=== PATIENT | female | born 1985 ===

== ENCOUNTER 2016-12-14 18:02 | Emergency (ER) | payer MEDICAID ==
[2016-12-14 18:09] VITALS: TEMP 97.8
[2016-12-14] MEDS ORDERED: Sodium Chloride 0.9% 1,000 ML IV ONE ×2 (19:41)
--- NOTE | 2016-12-14 19:44 | C.PDOC ---
History Of Present Illness Patient is a 31 year old female who presents to the ER with a complaint of fever and abdominal pain, associated with diarrhea and vomiting since the morning. Patient also reports having diffuse body aches. Denies any chest pain or shortness of breath. Chief Complaint (Nursing): Abdominal Pain History Per: Patient History/Exam Limitations: no limitations Onset/Duration Of Symptoms: Hrs (Since AM) Current Symptoms Are (Timing): Still Present Location Of Pain/Discomfort: Other (Abdominal Pain) Associated Symptoms: Fever, Vomiting, Diarrhea, Other (Diffuse body aches) Past Medical History Reviewed: Historical Data, Nursing Documentation, Vital Signs Vital Signs: Last Vital Signs Temp 97.8 F 12/14/16 18:07 Pulse 96 H 12/14/16 18:07 Resp 18 12/14/16 18:07 BP 94/68 L 12/14/16 18:07 Pulse Ox 96 12/14/16 19:50 - Medical History PMH: No Chronic Diseases Surgical History: (x 2) Family History: States: Unknown Family Hx - Social History Hx Tobacco Use: Yes Hx Alcohol Use: Yes (social) Hx Substance Use: No - Immunization History Hx Tetanus Toxoid Vaccination: Yes Hx Influenza Vaccination: No Hx Pneumococcal Vaccination: No Review Of Systems Constitutional: Positive for: Fever Cardiovascular: Negative for: Chest Pain Respiratory: Negative for: Shortness of Breath Gastrointestinal: Positive for: Vomiting, Abdominal Pain, Diarrhea Musculoskeletal: Positive for: Other (Diffuse body aches) Physical Exam - Physical Exam Appears: Well, Non-toxic Skin: Normal Color, Warm, Dry Head: Atraumatic, Normacephalic Oral Mucosa: Moist Chest: Symmetrical, No Tenderness Cardiovascular: Rhythm Regular, No Murmur Respiratory: Normal Breath Sounds, No Rales, No Rhonchi, No Wheezing Gastrointestinal/Abdominal: Soft, No Tenderness, No Guarding, No Rebound Neurological/Psych: Oriented x3, Normal Speech, Normal Cognition ED Course And Treatment - Laboratory Results Result Diagrams: 12/14/16 19:50 12/14/16 19:50 O2 Sat by Pulse Oximetry: 96 (Room air) Pulse Ox Interpretation: Normal Progress Note: Blood work and urinalysis ordered. Bentyl IM, zofran IVP and IV fluids administered. Disposition Counseled Patient/Family Regarding: Diagnosis - Disposition Referrals: [facility] [Outside] Disposition: HOME/ ROUTINE Disposition Time: 22:52 Condition: STABLE Prescriptions: Atropine/Hyoscyamine [] 1 tab PO Q6 #10 tab Ciprofloxacin [Cipro] 1 tab PO BID #14 tab Instructions: Abdominal Pain (ED), Enteritis (ED), Urinary Tract Infection in Women (DC) Forms: Work Excuse - POA Present On Arrival: None - Clinical Impression Clinical Impression: Abdominal pain, Enteritis, Urinary tract infection - Scribe Statement The provider has reviewed the documentation as recorded by the Scribsol Miles All medical record entries made by the Shalomibsol were at my direction and personally dictated by me. I have reviewed the chart and agree that the record accurately reflects my personal performance of the history, physical exam, medical decision making, and the department course for this patient. I have also personally directed, reviewed, and agree with the discharge instructions and disposition.
[2016-12-14] MEDS ORDERED: Sodium Chloride 0.9% 1,000 ML ONE (19:46)
[2016-12-14 19:56] LABS: BASO % 0.3 % (0.0-2.0); EOS % 0.7 % (0.0-4.0); HEMATOCRIT 34.3 % (34.0-47.0); LYMPH # 1.5 K/uL (1.0-4.3); LYMPH % 20.7 % (20.0-40.0); MEAN CORPUSCULAR HEMOGLOBIN 29.5 pg (27.0-31.0); MEAN CORPUSCULAR HGB CONC 33.1 g/dL (33.0-37.0); MONO # 0.3 K/uL (0.0-0.8); MONO % 4.7 % (0.0-10.0); WHITE BLOOD COUNT 7.1 K/uL (4.8-10.8)
[2016-12-14 20:04] LABS: CHLORIDE 100 mmol/L (98-107); POTASSIUM 3.5 mmol/L (3.6-5.2); SODIUM 138 mmol/L (132-148)
[2016-12-14 20:06] LABS: GFR AFRICAN-AMERICAN > 60
[2016-12-14 20:07] LABS: ALB/GLOB RATIO 1.2 (1.0-2.1); ALKALINE PHOSPHATASE 58 U/L (38-126); ALT/SGPT 34 U/L (9-52); AST/SGOT 24 U/L (14-36); BILIRUBIN,TOTAL 0.7 mg/dL (0.2-1.3); BLOOD UREA NITROGEN 11 mg/dL (7-17); CARBON DIOXIDE 26 mmol/L (22-30); GLUCOSE,RANDOM 88 mg/dL (65-105); TOTAL PROTEIN 6.9 g/dL (6.3-8.3)
[2016-12-14 20:28] LABS: RBC URINE 2 /hpf (0-3); URINE BACTERIA FEW (<OCC); URINE BILIRUBIN NEGATIVE (NEGATIVE); URINE BLOOD NEGATIVE (NEGATIVE); URINE COLOR Yellow (YELLOW); URINE GLUCOSE (UA) NORMAL (Normal); URINE KETONE NEGATIVE (NEGATIVE); URINE LEUKOCYTE ESTERASE 3+ Leu/uL (Negative); URINE PROTEIN NEGATIVE (NEGATIVE); URINE UROBILINOGEN NORMAL mg/dL (0.2-1.0); WBC URINE 16 /hpf (0-5)
[2016-12-14] MEDS ORDERED: Ciprofloxacin 400mg/200ml D5W 400 MG/200 ML BAG IVPB STA (20:42)
[2016-12-14] MEDS ORDERED: Ciprofloxacin 400mg/200ml D5W 400 MG/200 ML BAG IVPB ONE (20:49)
[2016-12-14 23:10] VITALS: BP 100/68; PULSE 77; RESP 20; O2SAT 98
== END 2016-12-14 23:10 | disposition home or self-care (01) ==
LOC: C.ER 18:02
DX: K52.9 Noninfective gastroenteritis and colitis, unspecified (principal); N39.0 Urinary tract infection, site not specified
CPT/HCPCS: 80053; 81001; 83690; 84703; 85025; 87086; 96361; 96365; 96372; 96375; 99285; J0500; J0744; J2405; J7040

== ENCOUNTER 2016-12-30 23:02 | Emergency (ER) | payer MEDICAID ==
[2016-12-30 23:41] VITALS: TEMP 97.7; O2SAT 100
[2016-12-31] MEDS ORDERED: Oxycodone/Acetaminophen 5/325 mg Tab PO STA (00:10)
[2016-12-31] MEDS ORDERED: Oxycodone/Acetaminophen 5/325 mg Tab ONE (00:14)
--- NOTE | 2016-12-31 00:33 | C.PDOC ---
History Of Present Illness A 31 y/o female presents to the ER c/o dental pain for a week. Pt notes she had a dental extraction performed about a week ago and then developed a lot of pain. Pt was seen by her dentist and was diagnosed with dry socket and had packing placed in the area with improvements of pain. Pt is back today noting that packing feel out of her gums and the pain has returned. Pt denies fever, chills, trauma to area, bleeding, swelling, or any other complaints. Time Seen by Provider: 12/30/16 23:47 Chief Complaint (Nursing): Dental Pain History Per: Patient History/Exam Limitations: no limitations Onset/Duration Of Symptoms: Days Current Symptoms Are (Timing): Still Present Severity: Mild Recent travel outside of the [place]: No Additional History Per: Patient Past Medical History Reviewed: Historical Data, Nursing Documentation, Vital Signs Vital Signs: Last Vital Signs Temp 97.7 F 12/31/16 00:35 Pulse 73 12/31/16 00:35 Resp 18 12/31/16 00:35 BP 110/73 12/31/16 00:35 Pulse Ox 100 12/31/16 04:10 Surgical History: (x 2) Family History: States: Unknown Family Hx - Social History Hx Tobacco Use: Yes Hx Alcohol Use: Yes (social) Hx Substance Use: No - Immunization History Hx Tetanus Toxoid Vaccination: Yes Hx Influenza Vaccination: No Hx Pneumococcal Vaccination: No Review Of Systems Except As Marked, All Systems Reviewed And Found Negative. Constitutional: Negative for: Fever, Chills, Other (Trauma to the area) ENT: Positive for: Mouth Pain. Negative for: Mouth Swelling, Other (Mouth bleeding or swelling) Physical Exam - Physical Exam Appears: Non-toxic, No Acute Distress Skin: Warm, Dry Head: Atraumatic, Normacephalic Eye(s): bilateral: Normal Inspection, PERRL, EOMI Oral Mucosa: Moist Teeth: No Caries Gingiva: No Swelling, No Tender, No Bleeding, No Abscess, Other (Upper left second pre-molar tooth extraction and (+) dry socket, no bleeding or drainage) Throat: Normal, No Exudate Neck: Normal ROM Neurological/Psych: Oriented x3, Normal Speech, Normal Cognition ED Course And Treatment O2 Sat by Pulse Oximetry: 100 (RA) Pulse Ox Interpretation: Normal Medical Decision Making Medical Decision Making: Plans: -Lidocaine -Oxycodone -Reassess and disposition Viscous lidocaine placed inside gums and gauze packed in place. There is no evidence of infection of abscess so no need for antibiotics. On reassessment, patient is resting comfortably, and is in no acute distress. Patient was instructed to follow up with physician/clinic in 1-2 days for further evaluation. Disposition - Disposition Referrals: [email or web address] [Outside] [facility] [Outside] Disposition: HOME/ ROUTINE Disposition Time: 00:31 Condition: GOOD Additional Instructions: Follow up with the dentist/clinic within 1-2 days without fail. Return if worsened. Prescriptions: Acetaminophen/Codeine [Tylenol/Codeine 300 MG/30 MG] 1 tab PO Q6 PRN #20 tab PRN Reason: Pain, Moderate (4-7) Instructions: Dry Socket (ED) - Clinical Impression Clinical Impression: Dry socket - Scribe Statement The provider has reviewed the documentation as recorded by the Shalomibsol barahona All medical record entries made by the Shalomibsol were at my direction and personally dictated by me. I have reviewed the chart and agree that the record accurately reflects my personal performance of the history, physical exam, medical decision making, and the department course for this patient. I have also personally directed, reviewed, and agree with the discharge instructions and disposition.
[2016-12-31 00:36] VITALS: BP 110/73; PULSE 73; RESP 18
== END 2016-12-31 00:38 | disposition home or self-care (01) ==
LOC: C.ER 23:02
DX: M27.3 Alveolitis of jaws (principal)

== ENCOUNTER 2017-01-18 18:00 | Emergency (ER) | payer OTHER, MEDICAID ==
[2017-01-18 18:29] VITALS: RESP 18; O2SAT 100
--- NOTE | 2017-01-18 19:26 | C.PDOC ---
History Of Present Illness 31 yo female come in for evaluation of Right knee pain developed since today afternoon after sustained mechanical fall at work. Pt admits, slipped and landed onto Right knee. Pt sts, was able to ambulate after the injury, although noted some swelling. Otherwise, pt denies head injury, LOC, syncope, headache, dizziness, visual changes, focal deficits,m neck apin, CP, abd. pain, N/V, denies deformity/weakness, sensory or vascular deficits to B/L UEs and LEs. Ambulate to ED for evaluation, not in any apparent distress. Time Seen by Provider: 01/18/17 18:10 Chief Complaint (Nursing): Lower Extremity Problem/Injury History Per: Patient Onset/Duration Of Symptoms: Gradual Past Medical History Reviewed: Historical Data, Nursing Documentation, Vital Signs Vital Signs: Last Vital Signs Temp 98 F 01/18/17 19:42 Pulse 69 01/18/17 19:42 Resp 18 01/18/17 19:42 BP 101/60 01/18/17 19:42 Pulse Ox 100 01/18/17 19:42 - Medical History PMH: No Chronic Diseases Surgical History: (x 2) Family History: States: Unknown Family Hx - Social History Hx Tobacco Use: Yes Hx Alcohol Use: Yes (social) Hx Substance Use: No - Immunization History Hx Tetanus Toxoid Vaccination: Yes Hx Influenza Vaccination: No Hx Pneumococcal Vaccination: No Review Of Systems Except As Marked, All Systems Reviewed And Found Negative. Constitutional: Negative for: Fever, Chills Gastrointestinal: Negative for: Nausea, Vomiting Musculoskeletal: Positive for: Other (Right knee pain) Skin: Negative for: Bruising Neurological: Negative for: Weakness, Numbness Physical Exam - Physical Exam Appears: Well, Non-toxic, No Acute Distress Skin: Normal Color, Warm, No Ecchymosis Head: Atraumatic, Normacephalic Eye(s): bilateral: PERRL Nose: No Epistaxis, No Deformity, No Tenderness Oral Mucosa: Moist, No Drooling Neck: No Midline Cervical Tenderness, No Paracervical Tenderness, No Step Off Deformity, Supple Chest: Symmetrical, No Deformity, No Tenderness Back: No CVA Tenderness, No Vertebral Tenderness Extremity: Normal ROM (Right knee), Tenderness (Right knee anterior tenderness over patella. NO palpable deformity, no skin chaghes.), No Deformity, No Swelling Neurological/Psych: Oriented x3, Normal Speech, Normal Motor, Normal Sensation, Normal Reflexes ED Course And Treatment O2 Sat by Pulse Oximetry: 100 Pulse Ox Interpretation: Normal - Other Rad Right knee X-Ray: Interpreted by Me, Viewed By Me Interpretation: no acute fx or dislocation Progress Note: On re-evaluation, pt is afebrile, hemodynamicaly stable. NOn- toxic. Ambulatory in ED with stable gait. neck: (-) midline tenderness. RLE: ( +) exam c/w contusion of knee, FAROM, no neurovascular deficits. Neurologicaly intact. xray review and appears normal. Arnel wrap to Right knee applied. Pt advised on course of ds. ref. to f/u with Ortho in 2-3 days for re-eavl. return to ED if any worsening or new changes. Disposition Counseled Patient/Family Regarding: Studies Performed, Diagnosis, Need For Followup, Rx Given - Disposition Referrals: [facility] [Outside] [facility] [Outside] Blaze King III, MD [Staff Provider] - Disposition: HOME/ ROUTINE Disposition Time: 19:27 Condition: STABLE Additional Instructions: RICE-rest, ice, compression, elevation Take Ibuprofen for swelling and pain Follow up with [facility] in 2-3 days for re-evaluation. Return to Ed if any worsening or new changes. Prescriptions: Ibuprofen [Motrin Tab] 600 mg PO Q6 #14 tab Instructions: Knee Sprain (ED) Forms: Work Excuse - Clinical Impression Clinical Impression: Knee contusion
[2017-01-18 19:43] VITALS: BP 101/60; PULSE 69; TEMP 98
--- NOTE | 2017-01-19 10:43 | RAD ---
PROCEDURE: Right Knee Radiographs. HISTORY: injury COMPARISON: None. FINDINGS: BONES: Normal. No fracture. JOINTS: Normal. No osteoarthritis. JOINT EFFUSION: None. OTHER FINDINGS: None. IMPRESSION: Normal radiographs of the right knee.
== END 2017-01-18 19:42 | disposition home or self-care (01) ==
LOC: C.ER 18:00
DX: S80.01XA Contusion of right knee, initial encounter (principal); W01.0XXA Fall on same level from slipping, tripping and stumbling without subsequent striking against object, initial encounter; Y93.89 Activity, other specified; Y92.89 Other specified places as the place of occurrence of the external cause; Y99.0 Civilian activity done for income or pay

== ENCOUNTER 2017-03-09 17:32 | Emergency (ER) | payer MEDICAID, OTHER ==
[2017-03-09 17:49] VITALS: RESP 20; TEMP 98.2; O2SAT 98
[2017-03-09] MEDS ORDERED: Sodium Chloride 0.9% 1,000 ML IV STA ×2 (18:25→19:21)
[2017-03-09 19:03] LABS: BASO % 0.4 % (0.0-2.0); EOS % 0.4 % (0.0-4.0); LYMPH # 1.6 K/uL (1.0-4.3); LYMPH % 21.4 % (20.0-40.0); MEAN CELL VOLUME 87.2 fL (81.0-99.0); MEAN CORPUSCULAR HGB CONC 33.2 g/dL (33.0-37.0); MEAN PLATELET VOLUME 9.2 fL (7.2-11.7); MONO # 0.4 K/uL (0.0-0.8); MONO % 5.4 % (0.0-10.0); RED CELL DISTRIBUTION WIDTH 15.2 % (11.5-14.5); WHITE BLOOD COUNT 7.5 K/uL (4.8-10.8)
[2017-03-09 19:10] LABS: RBC URINE 1 /hpf (0-3); URINE BACTERIA RARE (<OCC); URINE BILIRUBIN NEGATIVE (NEGATIVE); URINE BLOOD NEGATIVE (NEGATIVE); URINE COLOR Yellow (YELLOW); URINE GLUCOSE (UA) NORMAL (Normal); URINE KETONE NEGATIVE (NEGATIVE); URINE LEUKOCYTE ESTERASE TRACE Leu/uL (Negative); URINE PROTEIN NEGATIVE (NEGATIVE); URINE UROBILINOGEN NORMAL mg/dL (0.2-1.0); WBC URINE 2 /hpf (0-5)
[2017-03-09 19:14] LABS: CHLORIDE 99 mmol/L (98-107); POTASSIUM 3.2 mmol/L (3.6-5.2); SODIUM 133 mmol/L (132-148)
[2017-03-09 19:16] LABS: AST/SGOT 23 U/L (14-36); BILIRUBIN,TOTAL 0.6 mg/dL (0.2-1.3); CARBON DIOXIDE 25 mmol/L (22-30); GFR AFRICAN-AMERICAN > 60
[2017-03-09 19:17] LABS: ALB/GLOB RATIO 1.2 (1.0-2.1); ALKALINE PHOSPHATASE 71 U/L (38-126); ALT/SGPT 39 U/L (9-52); BLOOD UREA NITROGEN 6 mg/dL (7-17); CALCIUM 8.3 mg/dl (8.6-10.4); GLUCOSE,RANDOM 90 mg/dL (65-105); TOTAL PROTEIN 6.9 g/dL (6.3-8.3)
[2017-03-09] MEDS ORDERED: Potassium Chloride 20 mEq ER Tab PO STA (19:21)
[2017-03-09] MEDS ORDERED: Potassium Chloride 20 mEq ER Tab PO ONE (19:44)
--- NOTE | 2017-03-09 20:36 | C.PDOC ---
History Of Present Illness 31 y/o female that presents to the ED for evaluation of abdominal cramping associated with nausea, vomiting for the last 3 days. Pt states she has been feeling weak, and has body aches. Otherwise, denies any vomiting, urinary symptoms, or fever. Time Seen by Provider: 03/09/17 17:58 Chief Complaint (Nursing): GI Problem History Per: Patient History/Exam Limitations: no limitations Onset/Duration Of Symptoms: Days (3) Current Symptoms Are (Timing): Still Present Location Of Pain/Discomfort: Diffuse Quality Of Discomfort: "Pain" Associated Symptoms: Nausea, Diarrhea. denies: Fever, Chills, Vomiting, Loss Of Appetite, Back Pain, Chest Pain, Constipation, Urinary Symptoms Exacerbating Factors: None Alleviating Factors: Rest Recent travel outside of the [place]: No Additional History Per: Patient Abnormal Vaginal Bleeding: No Past Medical History Reviewed: Historical Data, Nursing Documentation, Vital Signs Vital Signs: Last Vital Signs Temp 98.2 F 03/09/17 20:59 Pulse 80 03/09/17 20:59 Resp 20 03/09/17 20:59 BP 128/72 03/09/17 20:59 Pulse Ox 98 03/09/17 20:59 Surgical History: (x 2) Family History: States: Unknown Family Hx - Social History Hx Tobacco Use: Yes Hx Alcohol Use: Yes (social) Hx Substance Use: No - Immunization History Hx Tetanus Toxoid Vaccination: Yes Hx Influenza Vaccination: No Hx Pneumococcal Vaccination: No Review Of Systems Except As Marked, All Systems Reviewed And Found Negative. Constitutional: Positive for: Weakness, Other (body aches). Negative for: Fever , Chills Gastrointestinal: Positive for: Nausea, Abdominal Pain, Diarrhea. Negative for : Vomiting, Constipation Genitourinary: Negative for: Dysuria, Frequency, Hematuria Musculoskeletal: Negative for: Back Pain Physical Exam - Physical Exam Appears: Non-toxic, No Acute Distress Skin: Normal Color, Warm, Dry Head: Atraumatic, Normacephalic Eye(s): bilateral: Normal Inspection Neck: Normal ROM, Supple Cardiovascular: Rhythm Regular, No Murmur Respiratory: Normal Breath Sounds, No Rales, No Rhonchi, No Wheezing Gastrointestinal/Abdominal: Normal Exam, Soft, No Tenderness, No Guarding, No Rebound Extremity: Bilateral: Atraumatic Neurological/Psych: Oriented x3, Normal Speech, Normal Cognition ED Course And Treatment - Laboratory Results Result Diagrams: 03/09/17 18:55 03/09/17 18:55 O2 Sat by Pulse Oximetry: 98 (RA) Pulse Ox Interpretation: Normal Progress Note: Blood work, urinlaysis ordered and reviewed. Patient was given IV fluids, Pepcid, Zofran. Potassium was found to be low. Patient was given Potassium chloride. On re-eval, abdomen remains soft and non-tender. Notes feeling better. Patient is being discharged home, instructed to f/u with PMD. Disposition - Disposition Disposition: HOME/ ROUTINE Disposition Time: 20:34 Condition: STABLE Additional Instructions: Follow up with your PMD within 1-2 days. Return to ED if feel worse. 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 - Scribe Statement The provider has reviewed the documentation as recorded by the Shalomibsol Greer All medical record entries made by the Shalomibsol were at my direction and personally dictated by me. I have reviewed the chart and agree that the record accurately reflects my personal performance of the history, physical exam, medical decision making, and the department course for this patient. I have also personally directed, reviewed, and agree with the discharge instructions and disposition.
[2017-03-09 21:00] VITALS: BP 128/72; PULSE 80
== END 2017-03-09 20:59 | disposition home or self-care (01) ==
LOC: C.ER 17:32
DX: K52.9 Noninfective gastroenteritis and colitis, unspecified (principal)
CPT/HCPCS: 80053; 81001; 83690; 84703; 85025; 96361; 96374; 96375; 99284; J2405; J7040

== ENCOUNTER 2017-05-04 18:28 | Emergency (ER) | payer MEDICAID ==
[2017-05-04 18:50] VITALS: BP 110/69; PULSE 120; RESP 20; TEMP 99; O2SAT 100
[2017-05-04] MEDS ORDERED: Promethazine/Cod 6.25mg-10mg/5ml Syr UD PO STA (19:31)
--- NOTE | 2017-05-04 19:40 | C.PDOC ---
History Of Present Illness 31 yr old female presents to the ER with complaints of cough for the past 4 days. Patient also reports of chest congestion, back pain on coughing and sore throat for the past 2 days. Patient states she took OTC Motrin with minimal relief. Denies fever, chest pain, SOB, nausea, vomiting, abdominal pain, weakness or numbness. Time Seen by Provider: 05/04/17 19:19 Chief Complaint (Nursing): Cough, Cold, Congestion History Per: Patient History/Exam Limitations: no limitations Onset/Duration Of Symptoms: Days Sick Contacts (Context): None Past Medical History Reviewed: Historical Data, Nursing Documentation, Vital Signs Vital Signs: Last Vital Signs Temp 99.0 F 05/04/17 18:47 Pulse 120 H 05/04/17 18:47 Resp 20 05/04/17 18:47 BP 110/69 05/04/17 18:47 Pulse Ox 100 05/04/17 21:46 Surgical History: (x 2) Family History: States: No Known Family Hx - Social History Hx Tobacco Use: Yes Hx Alcohol Use: Yes (social) Hx Substance Use: No - Immunization History Hx Tetanus Toxoid Vaccination: No Hx Influenza Vaccination: No Hx Pneumococcal Vaccination: No Review Of Systems Except As Marked, All Systems Reviewed And Found Negative. Constitutional: Negative for: Fever Cardiovascular: Negative for: Chest Pain Respiratory: Positive for: Cough. Negative for: Shortness of Breath Gastrointestinal: Negative for: Nausea, Vomiting, Abdominal Pain Musculoskeletal: Positive for: Back Pain (Upper back pain with cough) Neurological: Negative for: Weakness, Numbness Physical Exam - Physical Exam Appears: Non-toxic, No Acute Distress Skin: Warm, Dry, No Rash Head: Atraumatic, Normacephalic Oral Mucosa: Moist Chest: Symmetrical, No Tenderness Cardiovascular: Rhythm Regular, No Murmur Respiratory: Normal Breath Sounds, No Rales, No Rhonchi, No Stridor, No Wheezing Gastrointestinal/Abdominal: Normal Exam, Soft, No Tenderness, No Guarding, No Rebound Extremity: Normal ROM, No Swelling Neurological/Psych: Oriented x3, Normal Speech, Normal Motor ED Course And Treatment O2 Sat by Pulse Oximetry: 100 (RA) Pulse Ox Interpretation: Normal Progress Note: Pt is comfortable and in NAD, VSS. Pt advised follow up with PMD. Return precautions given and understood by pt Reevaluation Time: 19:50 Reassessment Condition: Improved Disposition Counseled Patient/Family Regarding: Diagnosis, Need For Followup, Rx Given - Disposition Disposition: HOME/ ROUTINE Disposition Time: 19:36 Condition: STABLE Additional Instructions: Please follow up with PMD Increase PO fluids Take meds as directed Return to ER if worse Prescriptions: Benzonatate [Tessalon Perles] 100 mg PO TID #20 sgl Cetirizine HCl [Zyrtec] 10 mg PO DAILY #20 capsule Ibuprofen [Motrin] 600 mg PO Q6H #30 tab Instructions: Upper Respiratory Infection (ED) Forms: Grandis (Argentine) - Clinical Impression Clinical Impression: Upper respiratory infection - 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 - Scribe Statement The provider has reviewed the documentation as recorded by the Scribe Gin Rogel All medical record entries made by the Scribsol were at my direction and personally dictated by me. I have reviewed the chart and agree that the record accurately reflects my personal performance of the history, physical exam, medical decision making, and the department course for this patient. I have also personally directed, reviewed, and agree with the discharge instructions and disposition.
[2017-05-04] MEDS ORDERED: Promethazine/Cod 6.25mg-10mg/5ml Syr UD ONE ×2 (19:47→19:48)
== END 2017-05-04 20:12 | disposition home or self-care (01) ==
LOC: C.ER 18:28
DX: J06.9 Acute upper respiratory infection, unspecified (principal); F17.210 Nicotine dependence, cigarettes, uncomplicated

== ENCOUNTER 2017-08-13 11:40 | Emergency (ER) | payer MEDICAID ==
[2017-08-13 11:54] VITALS: BP 116/80; PULSE 98; RESP 18; TEMP 98; O2SAT 100
[2017-08-13] MEDS ORDERED: Bacitracin 500 Units/gm Oint Foilpak UD TOP ONE (12:16)
[2017-08-13] MEDS ORDERED: Bacitracin 500 Units/gm Oint Foilpak UD ONE (12:23)
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
[2017-08-13] MEDS ORDERED: Lidocaine 1% Inj (20ml) INFIL ONE (13:01)
[2017-08-13] MEDS ORDERED: Lidocaine 1% Inj (20ml) ONE (13:06)
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
== END 2017-08-13 13:33 | disposition home or self-care (01) ==
LOC: C.ER 11:40
DX: S61.211A Laceration without foreign body of left index finger without damage to nail, initial encounter (principal); W26.0XXA Contact with knife, initial encounter; Y92.89 Other specified places as the place of occurrence of the external cause

== ENCOUNTER 2017-09-12 08:20 | Emergency (ER) | payer MEDICAID ==
[2017-09-12 08:30] VITALS: RESP 18; O2SAT 100
[2017-09-12] MEDS ORDERED: Sodium Chloride 0.9% 1,000 ML IV ONE (08:41)
[2017-09-12] MEDS ORDERED: Sodium Chloride 0.9% 1,000 ML ONE (08:48)
[2017-09-12] MEDS: Albuterol-Ipratrop 3 mg / 0.5 (3 ml) UD IH SCH ×2 (08:50→09:00)
--- NOTE | 2017-09-12 08:55 | C.PDOC ---
History Of Present Illness 31 y/o female presents to ED with complaints of cough, cold, congestion and fever for 2-3 days. 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 Patient denies nausea, vomiting, sob, chest pain or any other complaints at this time. Time Seen by Provider: 09/12/17 08:36 Chief Complaint (Nursing): Cough, Cold, Congestion History Per: Patient History/Exam Limitations: no limitations Onset/Duration Of Symptoms: Days Current Symptoms Are (Timing): Still Present Associated Symptoms: Fever, Cough Past Medical History Reviewed: Historical Data, Nursing Documentation, Vital Signs Vital Signs: Last Vital Signs Temp 103.1 F H 09/12/17 10:29 Pulse 112 H 09/12/17 10:29 Resp 18 09/12/17 10:29 BP 108/72 09/12/17 10:29 Pulse Ox 100 09/12/17 11:30 - Medical History PMH: Bronchitis, Pneumonia Surgical History: (x 2) Family History: States: No Known Family Hx - Social History Hx Tobacco Use: Yes Hx Alcohol Use: Yes (social) Hx Substance Use: No - Immunization History Hx Tetanus Toxoid Vaccination: No Hx Influenza Vaccination: No Hx Pneumococcal Vaccination: No Review Of Systems Constitutional: Positive for: Fever. Negative for: Chills ENT: Positive for: Nose Congestion Cardiovascular: Negative for: Chest Pain Respiratory: Positive for: Cough. Negative for: Shortness of Breath Gastrointestinal: Negative for: Nausea, Abdominal Pain Skin: Negative for: Rash Physical Exam - Physical Exam Appears: Non-toxic, No Acute Distress Skin: Warm, Dry, No Rash Head: Atraumatic, Normacephalic Eye(s): bilateral: Normal Inspection Ear(s): Bilateral: Normal Oral Mucosa: Moist Throat: Normal, No Erythema, No Exudate Neck: Supple Cardiovascular: Rhythm Regular, Other (Tachycardic) Respiratory: Normal Breath Sounds, No Rales, No Rhonchi, No Wheezing Gastrointestinal/Abdominal: Soft, No Tenderness, No Guarding, No Rebound Extremity: Normal ROM, No Pedal Edema Neurological/Psych: Oriented x3 ED Course And Treatment - Laboratory Results Result Diagrams: 09/12/17 09:03 09/12/17 09:03 Lab Interpretation: No Acute Changes Urine POC: Negative ECG: Interpreted By Me ECG Rhythm: Sinus Tachycardia Rate From EC O2 Sat by Pulse Oximetry: 100 (RA) Pulse Ox Interpretation: Normal - Radiology CXR: Interpreted by Me CXR Interpretation: Yes: No Acute Disease Progress Note: Treated with IVF NSS and tylenol 650 mg PO. On re-evaluation lungs clear. Flu A (+). Discharged in stable condition Reassessment Condition: Improved Medical Decision Making Medical Decision Making: Plan: ECG, CXR, Neb treatment, Blood work, POC urine preg ordered Disposition Counseled Patient/Family Regarding: Studies Performed, Diagnosis, Need For Followup, Rx Given - Disposition Referrals: [facility] [Outside] [facility] [Outside] Disposition: HOME/ ROUTINE Disposition Time: 11:30 Condition: STABLE Additional Instructions: Follow up with PMD or clinic for further evaluation Return to ED if any increase symptoms Prescriptions: Oseltamivir [Tamiflu] 75 mg PO BID #10 cap Instructions: Viral Pneumonia (ED), Influenza (ED), Upper Respiratory Infection (ED) Forms: [facility] (Hebrew), Work Excuse - POA Present On Arrival: None - Clinical Impression Clinical Impression: Flu, Fever - 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 - Scribe Statement The provider has reviewed the documentation as recorded by the Bryson Man All medical record entries made by the Bryson were at my direction and personally dictated by me. I have reviewed the chart and agree that the record accurately reflects my personal performance of the history, physical exam, medical decision making, and the department course for this patient. I have also personally directed, reviewed, and agree with the discharge instructions and disposition.
[2017-09-12] MEDS ORDERED: Albuterol-Ipratrop 3 mg / 0.5 (3 ml) UD ONE (08:56)
[2017-09-12 09:13] LABS: BASO % 0.7 % (0.0-2.0); EOS % 0.8 % (0.0-4.0); HEMOGLOBIN 10.7 g/dL (11.0-16.0); LYMPH % 10.1 % (20.0-40.0); MEAN CELL VOLUME 84.5 fL (81.0-99.0); MEAN CORPUSCULAR HEMOGLOBIN 28.2 pg (27.0-31.0); MEAN CORPUSCULAR HGB CONC 33.4 g/dL (33.0-37.0); MEAN PLATELET VOLUME 9.3 fL (7.2-11.7); MONO % 7.6 % (0.0-10.0); NEUT # 4.9 K/uL (1.8-7.0); NEUT % 80.8 % (50.0-75.0); RBC 3.78 Mil/uL (3.80-5.20); RED CELL DISTRIBUTION WIDTH 14.6 % (11.5-14.5); WHITE BLOOD COUNT 6.1 K/uL (4.8-10.8)
[2017-09-12 09:14] LABS: LYMPH # 0.6 K/uL (1.0-4.3); MONO # 0.5 K/uL (0.0-0.8)
[2017-09-12 09:28] LABS: BLOOD UREA NITROGEN 8 mg/dL (7-17); CALCIUM 8.3 mg/dl (8.6-10.4); GFR AFRICAN-AMERICAN > 60; GFR NON-AFRICAN AMERICAN > 60
--- NOTE | 2017-09-12 09:49 | RAD ---
HISTORY: SOB COMPARISON: Chest radiograph dated 09/22/2016 TECHNIQUE: Chest PA and lateral FINDINGS: LUNGS: No active pulmonary disease. PLEURA: No significant pleural effusion identified. No pneumothorax apparent. CARDIOVASCULAR: Normal. OSSEOUS STRUCTURES: No significant abnormalities. VISUALIZED UPPER ABDOMEN: Normal. OTHER FINDINGS: None. IMPRESSION: No active disease.
[2017-09-12 10:30] VITALS: BP 108/72; PULSE 112; TEMP 103.1
--- NOTE | 2017-09-13 12:36 | CARD ---
APPROVED REPORT EKG Measurement Heart [id number] <Conclusion> Sinus tachycardia Otherwise normal ECG
== END 2017-09-12 11:53 | disposition home or self-care (01) ==
LOC: C.ER 08:20
DX: J11.1 Influenza due to unidentified influenza virus with other respiratory manifestations (principal); R50.9 Fever, unspecified
CPT/HCPCS: 71046; 80048; 83605; 85025; 87070; 87430; 87804; 93005; 94640; 96360; 99285; J7040

== ENCOUNTER 2017-09-14 22:07 | Emergency (ER) | payer MEDICAID ==
[2017-09-14 22:37] VITALS: BP 100/68; PULSE 102; RESP 16; TEMP 98.8; O2SAT 99
--- NOTE | 2017-09-14 22:51 | C.PDOC ---
History Of Present Illness Patient is a 31 y/o female who presents to the ED with complains of not feeling well for several days. Patient was seen in ED 2 days ago and diagnosed with flu. Patient states she is taking Tamiflu, Tylenol and Motrin at home without relief. She states she feels the same or even worse, complains of sore throat, cough, headache, malaise and body aches. Fever has resolved. Time Seen by Provider: 09/14/17 22:39 Chief Complaint (Nursing): Cough, Cold, Congestion History Per: Patient History/Exam Limitations: no limitations Onset/Duration Of Symptoms: Days (2) Current Symptoms Are (Timing): Still Present Location Of Pain: Throat Associated Symptoms: Fever, Cough Recent travel outside of the [place]: No Past Medical History Reviewed: Historical Data, Nursing Documentation, Vital Signs Vital Signs: Last Vital Signs Temp 98.8 F 09/14/17 22:27 Pulse 102 H 09/14/17 22:27 Resp 16 09/14/17 22:27 BP 100/68 09/14/17 22:27 Pulse Ox 99 09/14/17 23:35 - Medical History PMH: Bronchitis, Pneumonia Surgical History: No Surg Hx, (x 2) Family History: States: No Known Family Hx - Social History Hx Tobacco Use: Yes Hx Alcohol Use: Yes (social) Hx Substance Use: No - Immunization History Hx Tetanus Toxoid Vaccination: No Hx Influenza Vaccination: Yes Hx Pneumococcal Vaccination: No Review Of Systems Constitutional: Positive for: Fever, Malaise ENT: Positive for: Throat Pain Respiratory: Positive for: Cough. Negative for: Shortness of Breath Gastrointestinal: Negative for: Abdominal Pain Musculoskeletal: Positive for: Other (diffuse myalgias) Skin: Negative for: Rash Neurological: Positive for: Headache Physical Exam - Physical Exam Appears: Well, Non-toxic Skin: Normal Color, Warm, Dry Head: Atraumatic, Normacephalic Eye(s): bilateral: Normal Inspection, EOMI Ear(s): Bilateral: Normal (no erythema) Nose: Normal Oral Mucosa: Moist Throat: Erythema (mild), No Exudate, No Drooling, No Mass Neck: Normal ROM, Supple Lymphatic: Normal Exam, No Adenopathy Chest: Symmetrical Cardiovascular: Rhythm Regular, No Murmur Respiratory: Normal Breath Sounds, No Rales, No Rhonchi, No Wheezing Extremity: Bilateral: Atraumatic, Normal Color And Temperature, Normal ROM Neurological/Psych: Oriented x3, Normal Speech, Other (no focal deficits) Gait: Steady ED Course And Treatment O2 Sat by Pulse Oximetry: 99 Medical Decision Making Medical Decision Making: Prior record reviewed from 2 days ago 09/12/17, patient had complete workup, labs CXR, EKG with no abnormalities and +Flu A. Patient complains she still feels the same and wants antibiotics for her throat. Throat exam shows mild erythema, no exudates or signs of strep pharyngitis. I explained and educated patient on Influenza and the course of illness. Explain the symptoms of flu can last a week and until fever free for 24 hours she is no longer contagious and severity of symptoms improves after the first few days. Prednisone given for throat pain and cough/chest congestion. Advise to finish Tamiflu and try cepacol, lozenges or gargles for throat pain. Antibiotics are not necessary for treatment and current treatment plan is appropriate. Rx given. Patient stable for discharge Disposition Counseled Patient/Family Regarding: Diagnosis, Need For Followup, Rx Given - Disposition Referrals: [facility] [Outside] [facility] [Outside] Disposition: HOME/ ROUTINE Disposition Time: 23:00 Condition: GOOD Additional Instructions: You have influenza which can last up to 2 weeks, but taking Tamiflu can make symptoms last about one week Continue to rest and drink fluids to stay hydrated Take Tylenol or Motrin alternating every 4-6 hours for Fever 100.4F or higher. Take Prednisone daily to help with any inflammation of throat and chest Take cough medicine as needed Please follow up with your primary doctor for further evaluation. Prescriptions: Prednisone 50 mg PO DAILY #5 tablet Promethazine/Codeine [Phenergan/Codeine Oral Syrup] 5 ml PO Q8 PRN #150 ml PRN Reason: Cough Instructions: Influenza (ED) Forms: [facility] (Tamazight) - POA Present On Arrival: None - Clinical Impression Clinical Impression: Influenza, Sore throat - Scribe Statement The provider has reviewed the documentation as recorded by the Scribe Grace Churchill All medical record entries made by the Scribe were at my direction and personally dictated by me. I have reviewed the chart and agree that the record accurately reflects my personal performance of the history, physical exam, medical decision making, and the department course for this patient. I have also personally directed, reviewed, and agree with the discharge instructions and disposition.
== END 2017-09-14 23:07 | disposition home or self-care (01) ==
LOC: C.ER 22:07
DX: J11.1 Influenza due to unidentified influenza virus with other respiratory manifestations (principal)

== ENCOUNTER 2017-11-29 11:07 | Emergency (ER) | payer MEDICAID ==
[2017-11-29 11:22] VITALS: BP 124/84; PULSE 79; RESP 18; TEMP 98.2; O2SAT 99
--- NOTE | 2017-11-29 11:46 | C.PDOC ---
History Of Present Illness 32 year old female presents to the ER complaining of dryness, itchiness, irritation, and cracking of bilateral fingertips. Patient states that that she used to wear acrylic nails and she had some type of reaction one day so she decided to remove the nails. Patient reports that she has been experiencing pain in her fingertips since she removed her nails. She notes that her nail are not growing and the skin around her nails is very irritated. She used topical , anti fungal creams and lotions w/o relief. Patient denies having fever, chills, and discharge. Time Seen by Provider: 11/29/17 11:32 Chief Complaint (Nursing): Finger,Hand,&Wrist History Per: Patient History/Exam Limitations: no limitations Onset/Duration Of Symptoms: Days Current Symptoms Are (Timing): Still Present Severity: Moderate Past Medical History Reviewed: Historical Data, Nursing Documentation, Vital Signs Vital Signs: Last Vital Signs Temp 98.2 F 11/29/17 11:19 Pulse 79 11/29/17 11:19 Resp 18 11/29/17 11:19 BP 124/84 11/29/17 11:19 Pulse Ox 99 11/29/17 13:16 - Medical History PMH: Bronchitis, Pneumonia Surgical History: (x 2) Family History: States: No Known Family Hx - Social History Hx Tobacco Use: Yes Hx Alcohol Use: Yes (social) Hx Substance Use: No - Immunization History Hx Tetanus Toxoid Vaccination: Yes Hx Influenza Vaccination: Yes Hx Pneumococcal Vaccination: No Review Of Systems Except As Marked, All Systems Reviewed And Found Negative. Constitutional: Negative for: Fever, Chills Skin: Positive for: Other (dryness and itching to skin of finger tips) Physical Exam - Physical Exam Appears: Non-toxic, No Acute Distress Skin: Normal Color, Warm, Other (very dry scaly skin to bilateral fingertips and nail borders with few excoriations, mild erythema and minimal swelling to bilateral fingertips,nails intact) Head: Atraumatic, Normacephalic Eye(s): bilateral: Normal Inspection Nose: Normal Oral Mucosa: Moist Neck: Supple Chest: Symmetrical Cardiovascular: Rhythm Regular Respiratory: Normal Breath Sounds, No Rales, No Rhonchi, No Wheezing Neurological/Psych: Oriented x3, Normal Speech ED Course And Treatment O2 Sat by Pulse Oximetry: 99 (RA) Pulse Ox Interpretation: Normal Medical Decision Making Medical Decision Making: Impression: --Dyshidrotic, Eczema Progress: Patient has been advised to apply moisturizer and soak her hands and fingertips . Patient has been discharged with a prescription for steroid cream and anti- histamine. She has been instructed to follow up with network mgr. Disposition Counseled Patient/Family Regarding: Diagnosis, Need For Followup, Rx Given - Disposition Referrals: Jovanny Carbajal MD [Staff Provider] - Disposition: HOME/ ROUTINE Disposition Time: 11:44 Condition: GOOD Additional Instructions: Try soaks and cool compresses for 15 minutes 2-3 times a aday to dry any blisters Apply cream to skin Take antihistamine daily medicine Apply moisturizer cream to skin Follow up with network mgr if symptoms do not improved after 2 weeks Prescriptions: Cephalexin [cephalexin] 500 mg PO Q12 #10 cap Hydrocortisone/Pramoxine [Hydrocortisone-Pramoxine Cream] 28.4 gm TP BID #1 cream..g. 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 - Scribe Statement The provider has reviewed the documentation as recorded by the Bryson Obando Provider Attestation All medical record entries made by the Shalomibe were at my direction and personally dictated by me. I have reviewed the chart and agree that the record accurately reflects my personal performance of the history, physical exam, medical decision making, and the department course for this patient. I have also personally directed, reviewed, and agree with the discharge instructions and disposition.
== END 2017-11-29 12:02 | disposition home or self-care (01) ==
LOC: C.ER 11:07
DX: L30.1 Dyshidrosis [pompholyx] (principal)

== ENCOUNTER 2018-04-11 17:29 | Emergency (ER) | payer MEDICAID ==
--- NOTE | 2018-04-11 19:13 | C.PDOC ---
History Of Present Illness 32 y/o female presents to the ER complaining of ingrown toenail to her left big toe, which has been present for the past 3 days. She states she cut her toe nail herself but notes swelling and discharge. Denies having fever, change in sensation, weakness, and chills. Time Seen by Provider: 04/11/18 18:15 Chief Complaint (Nursing): Lower Extremity Problem/Injury History Per: Patient History/Exam Limitations: no limitations Onset/Duration Of Symptoms: Days Current Symptoms Are (Timing): Still Present Past Medical History Reviewed: Historical Data, Nursing Documentation, Vital Signs Vital Signs: Last Vital Signs Temp 98.4 F 04/11/18 19:17 Pulse 80 04/11/18 19:17 Resp 16 04/11/18 19:17 BP 125/72 04/11/18 19:17 Pulse Ox 100 04/11/18 20:42 - Medical History PMH: Bronchitis, Pneumonia Surgical History: (x 2) Family History: States: No Known Family Hx - Social History Hx Tobacco Use: Yes Hx Alcohol Use: Yes (social) Hx Substance Use: No - Immunization History Hx Tetanus Toxoid Vaccination: Yes Hx Influenza Vaccination: Yes Hx Pneumococcal Vaccination: No Review Of Systems Except As Marked, All Systems Reviewed And Found Negative. Constitutional: Negative for: Fever, Chills Skin: Positive for: Other (ingrown toe nail, left big toe) Physical Exam - Physical Exam Appears: Non-toxic, No Acute Distress Skin: Warm, Dry Head: Atraumatic, Normacephalic Eye(s): bilateral: Normal Inspection, EOMI Nose: Normal Oral Mucosa: Moist Neck: Normal ROM, Supple Chest: Symmetrical Respiratory: No Accessory Muscle Use Extremity: Tenderness (tenderness to lateral aspect of left big toe), Capillary Refill (<2 sec), Swelling (minimal swelling to lateral aspect of left big toe without discharge, granuloma. Toe nail lateral edge cut , no evidence of ingrown toe nail) Pulses: Left Dorsalis Pedis: Normal, Right Dorsalis Pedis: Normal Neurological/Psych: Oriented x3, Normal Speech, Normal Sensation ED Course And Treatment O2 Sat by Pulse Oximetry: 100 (RA) Pulse Ox Interpretation: Normal Progress Note: Patient has been instructed to apply warm soaks, abx and follow up with foot doctor in 1-2 days. Disposition - Disposition Referrals: Candelario Edward DPM [Staff Provider] - Disposition: HOME/ ROUTINE Disposition Time: 19:10 Condition: STABLE Additional Instructions: Warm soaks. Apply antibiotic ointment. Follow up with the foot doctor in 1-2 days. Return to ER if symptoms persist or worsen. 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 - Scribe Statement The provider has reviewed the documentation as recorded by the Shalomibe Breanna Obando Provider Attestation All medical record entries made by the Shalomibsol were at my direction and personally dictated by me. I have reviewed the chart and agree that the record accurately reflects my personal performance of the history, physical exam, medical decision making, and the department course for this patient. I have also personally directed, reviewed, and agree with the discharge instructions and disposition.
[2018-04-11 19:18] VITALS: BP 125/72; PULSE 80; RESP 16; TEMP 98.4
[2018-04-11 19:24] VITALS: O2SAT 100
== END 2018-04-11 19:17 | disposition home or self-care (01) ==
LOC: C.ER 17:29
DX: L60.0 Ingrowing nail (principal)

== ENCOUNTER 2018-06-06 17:05 | Emergency (ER) | payer MEDICAID ==
[2018-06-06 17:11] VITALS: BMI 37.5
[2018-06-06 17:12] VITALS: BP 112/74; PULSE 107; RESP 18; TEMP 99.7; O2SAT 99
--- NOTE | 2018-06-06 18:21 | RAD ---
HISTORY: r/o PNA COMPARISON: Chest x-ray performed 09/12/17 TECHNIQUE: Chest PA and lateral FINDINGS: LUNGS: No focal consolidation. Please note that chest x-ray has limited sensitivity for the detection of pulmonary masses. PLEURA: No significant pleural effusion identified. No definite pneumothorax . CARDIOVASCULAR: The cardiomediastinal silhouette appears within normal limits of size. No atherosclerotic calcification present. OSSEOUS STRUCTURES: No acute osseous abnormality identified. VISUALIZED UPPER ABDOMEN: Elevation of the right hemidiaphragm. OTHER FINDINGS: None. IMPRESSION: No focal consolidation identified.
--- NOTE | 2018-06-06 18:27 | C.PDOC ---
History Of Present Illness 32 y/o female, w/no significant PMhx, presents to the ER complaining of flu like symptoms for the past 8 hours. Patient states that she has fever (Tmax 103F), headache, productive cough w/yellow mucus, and body aches. Patient took Tylenol for the fever, last dose 10am. 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 Denies having CP, rash, vomiting, and changes in vision. Of note, patient is a smoker. Chief Complaint (Nursing): Flu-like Symptoms History Per: Patient History/Exam Limitations: no limitations Onset/Duration Of Symptoms: Hrs Current Symptoms Are (Timing): Still Present Severity: Moderate Past Medical History Reviewed: Historical Data, Nursing Documentation, Vital Signs Vital Signs: Last Vital Signs Temp 99.7 F H 06/06/18 17:10 Pulse 107 H 06/06/18 17:10 Resp 18 06/06/18 17:10 BP 112/74 06/06/18 17:10 Pulse Ox 99 06/06/18 17:10 - Medical History PMH: Bronchitis, Pneumonia Surgical History: (x 2) Family History: States: No Known Family Hx - Social History Hx Tobacco Use: Yes Hx Alcohol Use: Yes (social) Hx Substance Use: No - Immunization History Hx Tetanus Toxoid Vaccination: Yes Hx Influenza Vaccination: Yes Hx Pneumococcal Vaccination: No Review Of Systems Except As Marked, All Systems Reviewed And Found Negative. Constitutional: Positive for: Fever, Malaise. Negative for: Chills Eyes: Negative for: Pain, Vision Change ENT: Positive for: Nose Discharge, Nose Congestion, Throat Pain. Negative for: Ear Pain, Ear Discharge, Nose Pain, Throat Swelling Cardiovascular: Negative for: Chest Pain, Palpitations, Light Headedness Respiratory: Positive for: Cough, Sputum. Negative for: Shortness of Breath, Hemoptysis, Wheezing Gastrointestinal: Positive for: Nausea. Negative for: Vomiting, Abdominal Pain, Diarrhea, Constipation, Hematochezia Genitourinary: Negative for: Dysuria, Frequency Musculoskeletal: Positive for: Back Pain. Negative for: Neck Pain Skin: Negative for: Rash Neurological: Positive for: Headache. Negative for: Weakness, Numbness, Confusion, Dizziness Physical Exam - Physical Exam Appears: Non-toxic, No Acute Distress, Other (uncomfortable) Skin: Warm, Dry, Pale Head: Atraumatic, Normacephalic Eye(s): bilateral: Normal Inspection, PERRL, EOMI Ear(s): Bilateral: Normal Nose: Normal Oral Mucosa: Moist Tongue: Normal Appearing Lips: Normal Appearing Gingiva: Normal Appearing Throat: Normal, No Erythema, No Exudate Neck: Normal, Normal ROM, No Midline Cervical Tenderness, No Paracervical Tenderness, Supple, No Other (meningeal signs) Lymphatic: No Adenopathy Chest: Symmetrical Cardiovascular: Rhythm Regular Respiratory: Normal Breath Sounds, No Decreased Breath Sounds, No Accessory Musc le Use, No Rales, No Rhonchi, No Wheezing Gastrointestinal/Abdominal: Normal Exam, Bowel Sounds, Soft, No Tenderness Back: Normal Inspection, No Decreased ROM, No Paraspinal Tenderness Extremity: Normal ROM, No Tenderness, No Swelling Extremity: Bilateral: Atraumatic, No Pedal Edema, Normal Color And Temperature, Normal ROM Pulses: Left Radial: Normal, Right Radial: Normal Neurological/Psych: Oriented x3, Normal Speech, Normal Cognition, Normal Cranial Nerves, Normal Motor, Normal Sensation Gait: Steady ED Course And Treatment O2 Sat by Pulse Oximetry: 99 (RA) Pulse Ox Interpretation: Normal - Other Rad CXR X-Ray: Viewed By Me, Read By Radiologist Interpretation: HISTORY: r/o PNA. COMPARISON: Chest x-ray performed 09/12/17. TECHNIQUE: Chest PA and lateral. FINDINGS: LUNGS: No focal consolidation. Please note that chest x-ray has limited sensitivity for the detection of pulmonary masses. PLEURA: No significant pleural effusion identified. No definite pneumothorax . CARDIOVASCULAR: The cardiomediastinal silhouette appears within normal limits of size. No atherosclerotic calcification present. OSSEOUS STRUCTURES: No acute osseous abnormality identified. VISUALIZED UPPER ABDOMEN: Elevation of the right hemidiaphragm. OTHER FINDINGS: None. IMPRE SSION: No focal consolidation identified. Medical Decision Making Medical Decision Making: Initial Plan: --Flu Swab --CXR Flu - negative CXR Results - No active disease Impression: Viral Syndrome Plan: Increase fluids Take mucinex every 12 hours as needed for congestion Take tylenol and ibuprofen for muscle aches and fever Rest, no strenuous activity Stop Smoking Followup with primary doctor within 2 days Return to ER if symptoms are worse Disposition Counseled Patient/Family Regarding: Studies Performed, Diagnosis, Rx Given, Smoking Cessation - Disposition Referrals: [facility] [Outside] Disposition: HOME/ ROUTINE Disposition Time: 18:25 Condition: STABLE Additional Instructions: Increase fluids Take mucinex every 12 hours as needed for congestion Take tylenol and ibuprofen for muscle aches and fever Rest, no strenuous activity Stop Smoking Followup with primary doctor within 2 days Return to ER if symptoms are worse Prescriptions: Guaifenesin [Mucinex] 600 mg PO BID PRN #14 tab PRN Reason: congestion Instructions: Viral Upper Respiratory Infection, Adult (DC) Forms: [employer] (Australian), Work Excuse - Clinical Impression Clinical Impression: Viral upper respiratory illness - 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 - Scribe Statement The provider has reviewed the documentation as recorded by the Bryson Obando Provider Attestation All medical record entries made by the Shalomibe were at my direction and personally dictated by me. I have reviewed the chart and agree that the record accurately reflects my personal performance of the history, physical exam, medical decision making, and the department course for this patient. I have also personally directed, reviewed, and agree with the discharge instructions and disposition.
== END 2018-06-06 18:39 | disposition home or self-care (01) ==
LOC: C.ER 17:05
DX: J06.9 Acute upper respiratory infection, unspecified (principal); F17.210 Nicotine dependence, cigarettes, uncomplicated

== ENCOUNTER 2018-07-18 15:53 | Emergency (ER) | payer MEDICAID ==
[2018-07-18 15:53] VITALS: BMI 37.5
[2018-07-18 16:05] VITALS: RESP 20; TEMP 98.5; O2SAT 98
--- NOTE | 2018-07-18 16:30 | C.PDOC ---
History Of Present Illness 32 y/o female with no significant PMH presents to the ED c/o right elbow pain x 2 days. Pt states she was lifting something heavy 2 days ago when she heard a pop, causing immediate pain to the right elbow. Associated swelling. Pain is sharp and worse with lifting object and bearing weight. Took Alieve yesterday with mild relief. Denies fever, chills, wrist pain, shoulder pain, numbness, paresthesias, weakness, or any other associated symptoms. Time Seen by Provider: 07/18/18 16:05 Chief Complaint (Nursing): Upper Extremity Problem/Injury History Per: Patient History/Exam Limitations: no limitations Onset/Duration Of Symptoms: Days Current Symptoms Are (Timing): Still Present Quality: Sharp Severity: Moderate Past Medical History Reviewed: Historical Data, Nursing Documentation, Vital Signs Vital Signs: Last Vital Signs Temp 98.5 F 07/18/18 15:59 Pulse 95 H 07/18/18 15:59 Resp 20 07/18/18 15:59 BP 95/59 L 07/18/18 15:59 Pulse Ox 98 07/18/18 15:59 - Medical History PMH: Bronchitis, Pneumonia Surgical History: (x 2) Family History: States: No Known Family Hx - Social History Hx Tobacco Use: Yes Hx Alcohol Use: Yes (social) Hx Substance Use: No - Immunization History Hx Tetanus Toxoid Vaccination: Yes Hx Influenza Vaccination: Yes Hx Pneumococcal Vaccination: No Review Of Systems Except As Marked, All Systems Reviewed And Found Negative. Constitutional: Negative for: Fever, Chills Eyes: Negative for: Vision Change Cardiovascular: Negative for: Chest Pain, Palpitations Respiratory: Negative for: Cough, Shortness of Breath Gastrointestinal: Negative for: Nausea, Vomiting, Abdominal Pain Musculoskeletal: Positive for: Arm Pain (right elbow). Negative for: Neck Pain, Shoulder Pain, Back Pain, Hand Pain, Leg Pain Skin: Positive for: Other (swelling right elbow). Negative for: Rash, Bruising Neurological: Negative for: Weakness, Numbness Physical Exam - Physical Exam Appears: Well, Non-toxic, No Acute Distress Skin: Normal Color, Warm, Dry Head: Atraumatic, Normacephalic, No Tenderness Eye(s): bilateral: Normal Inspection, PERRL, EOMI Nose: Normal Oral Mucosa: Moist Throat: Normal Neck: Normal, Normal ROM, No Midline Cervical Tenderness, No Paracervical Tenderness Lymphatic: Normal Exam Chest: Symmetrical, No Deformity, No Tenderness Cardiovascular: Rhythm Regular Respiratory: Normal Breath Sounds Back: Normal Inspection Extremity: Normal ROM, Tenderness (mild, right posterior medial elbow), Capillary Refill (<2s), No Deformity, Swelling (mild swelling to right elbow, no redness, no warmth), Other (pain on resisted wrist flexion) Extremity: Right: Painful To Bear Weight (elbow, pain with pushing off surfaces), Bilateral: Atraumatic, No Pedal Edema, Normal Color And Temperature, Normal ROM Pulses: Left Radial: Normal, Right Radial: Normal Neurological/Psych: Oriented x3, Normal Speech, Normal Cognition, Normal Cranial Nerves, Normal Motor, Normal Sensation Gait: Steady ED Course And Treatment O2 Sat by Pulse Oximetry: 98 Medical Decision Making Medical Decision Making: Initial Plan: * right elbow XR * Toradol Reports decreased pain after medication. Right elbow XR: no acute fracture or dislocation Patient placed in arm sling and given CARLENE wrap for home. Instructed to followup with orthopedics to rule out tendon or ligament injury. Plan of care discussed with patient, and strict instructions given regarding prescriptions, importance of follow up, and signs to return to Emergency Department, to include worsening pain/swelling, chest pain, SOB or any other new/worsening symptoms. Patient verbalizes understanding of discussion. Patient A&Ox3, ambulating with steady gait, stable for discharge home. Disposition - Disposition Referrals: Blaze King III, MD [Staff Provider] - Disposition: HOME/ ROUTINE Disposition Time: 18:00 Condition: IMPROVED Additional Instructions: Rest, ice, elevate injured arm Naproxen every day with food as needed for pain Followup with orthopedics within 2 days Followup with primary within 2 days Return to ER for any new/worsening symptoms Prescriptions: Naproxen [Naprosyn] 500 mg PO DAILY PRN #14 tablet PRN Reason: Pain, Moderate (4-7) Instructions: Elbow Sprain (DC) Forms: General Discharge Instructions, [facility] ([place]), Work Excuse - Clinical Impression Clinical Impression: Elbow sprain
--- NOTE | 2018-07-18 18:24 | RAD ---
PROCEDURE: Radiographs of the right elbow. HISTORY: right elbow injury, pain COMPARISON: No prior. FINDINGS: BONES: No acute displaced fracture. JOINTS: No dislocation. SOFT TISSUES: Unremarkable. No evidence of radiopaque foreign body. JOINT EFFUSION: No significant joint effusion. OTHER FINDINGS: None IMPRESSION: No acute displaced fracture, dislocation, or significant joint effusion identified. If symptoms persist, or if there is continued clinical concern, x-ray follow-up in 7-10 days should be considered.
[2018-07-18 18:28] VITALS: BP 110/50; PULSE 80
== END 2018-07-18 18:28 | disposition home or self-care (01) ==
LOC: C.ER 15:53
DX: S53.401A Unspecified sprain of right elbow, initial encounter (principal); X50.0XXA Overexertion from strenuous movement or load, initial encounter
CPT/HCPCS: 73080; 96372; 99285; J1885

== ENCOUNTER 2018-09-16 21:24 | Emergency (ER) | payer MEDICAID ==
[2018-09-16 21:25] VITALS: BMI 37.5
[2018-09-16 22:00] VITALS: TEMP 98.1
--- NOTE | 2018-09-16 23:50 | C.PDOC ---
History Of Present Illness 32 year old female presents to the ED c/o neck stiffness after she fell backwards while rollerskating on Sunday. Patient reports she fell backwards. Patient reports she fell ok until today. Patient reports she started having increased stiffness, took Tylenol with no relief. Patient denies LOC, head injury, visual changes, nausea, vomit, dizziness, weakness, numbness. Time Seen by Provider: 09/16/18 22:06 Chief Complaint (Nursing): Back Pain History Per: Patient History/Exam Limitations: no limitations Onset/Duration Of Symptoms: Days Current Symptoms Are (Timing): Still Present Quality Of Discomfort: "Pain" Recent travel outside of the [place]: No Additional History Per: Patient Past Medical History Reviewed: Historical Data, Nursing Documentation, Vital Signs Vital Signs: Last Vital Signs Temp 98.1 F 09/16/18 21:57 Pulse 100 H 09/16/18 21:57 Resp 20 09/16/18 21:57 BP 111/78 09/16/18 21:57 Pulse Ox 100 09/16/18 21:57 - Medical History PMH: Bronchitis, Pneumonia Surgical History: (x 2) Family History: States: Unknown Family Hx - Social History Hx Tobacco Use: Yes Hx Alcohol Use: Yes (social) Hx Substance Use: No - Immunization History Hx Tetanus Toxoid Vaccination: Yes Hx Influenza Vaccination: Yes Hx Pneumococcal Vaccination: No Review Of Systems Constitutional: Negative for: Fever, Chills Cardiovascular: Negative for: Chest Pain, Palpitations Respiratory: Negative for: Shortness of Breath Gastrointestinal: Negative for: Nausea, Vomiting, Abdominal Pain Musculoskeletal: Positive for: Neck Pain, Back Pain Skin: Negative for: Rash Neurological: Positive for: Headache. Negative for: Weakness, Numbness, Dizziness Physical Exam - Physical Exam Appears: Non-toxic, No Acute Distress Skin: Normal Color, Warm, Dry Head: Atraumatic, Normacephalic Eye(s): bilateral: Normal Inspection, PERRL, EOMI Neck: Decreased ROM (due to pain), No Midline Cervical Tenderness, Paracervical Tenderness (diffuse ), Supple, Other (no neck swelling) Chest: Symmetrical Cardiovascular: Rhythm Regular Respiratory: Normal Breath Sounds, No Rales, No Rhonchi, No Wheezing Back: No Vertebral Tenderness Extremity: Normal ROM, No Tenderness, No Swelling Neurological/Psych: Oriented x3, Normal Speech, Normal Cognition Gait: Steady ED Course And Treatment O2 Sat by Pulse Oximetry: 100 (ON RA) Pulse Ox Interpretation: Normal - Other Rad Neck soft tissue X-Ray: Interpreted by Me, Viewed By Me Interpretation: No fracture or dislocation Progress Note: Plan: - Valium 5 mg PO. - Motrin 600 mg PO. - Neck soft tissue X-Ray. Imaging results were discussed with the patient, pain medication was given in the ED. Patient reports she is feeling better, no longer in pain. Patient was advised to continue taking NSAIDs for pain management and advised to follow up with PMD. Disposition Counseled Patient/Family Regarding: Diagnosis, Need For Followup, Rx Given - Disposition Referrals: [facility] [Outside] Disposition: HOME/ ROUTINE Disposition Time: 23:48 Condition: STABLE Additional Instructions: Please follow up with PMD or in clinic Apply warm compress/ heat pads Follow up with PMD Return to ER if worse Prescriptions: Cyclobenzaprine [Cyclobenzaprine HCl] 10 mg PO HS #10 tab Ibuprofen [Motrin] 600 mg PO Q6H #30 tab Instructions: Torticollis (DC) Forms: [facility] (Arabic) - Clinical Impression Clinical Impression: Neck muscle strain - 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 - Scribe Statement The provider has reviewed the documentation as recorded by the Scribsol Lees All medical record entries made by the Shalomibsol were at my direction and personally dictated by me. I have reviewed the chart and agree that the record accurately reflects my personal performance of the history, physical exam, medical decision making, and the department course for this patient. I have also personally directed, reviewed, and agree with the discharge instructions and disposition.
[2018-09-16 23:59] VITALS: BP 110/70; PULSE 70; RESP 14
[2018-09-17 00:08] VITALS: O2SAT 100
--- NOTE | 2018-09-17 08:48 | RAD ---
Date of service: 09/16/2018 HISTORY: The history of neck pain and stiffness is noted. Is also history of fall. This study is not the cervical spine. The study is a neck study. Given the history of fall, consider further completion of this exam with a cervical spine study as this study does not include C7 or its posterior elements to assess. COMPARISON: None FINDINGS: C1-C2-C3-C4 C5 and C6 appear unremarkable. C7 is not visualized. Soft tissues and airway appear unremarkable. No radiopaque foreign body at the neck level noted. Dental and likely nose piercing present. IMPRESSION: No airway compromise apparent on this neck soft tissue study. No gross soft tissue pathology apparent the neck level.. Please note given the history of a fall, consider a cervical spine study where the C7 vertebral body and posterior elements are better visualized on the lateral view.
== END 2018-09-16 23:59 | disposition home or self-care (01) ==
LOC: C.ER 21:24
DX: S16.1XXA Strain of muscle, fascia and tendon at neck level, initial encounter (principal); V00.121A Fall from non-in-line roller-skates, initial encounter; Y93.51 Activity, roller skating (inline) and skateboarding

== ENCOUNTER 2018-12-23 08:53 | Emergency (ER) | payer MEDICAID ==
[2018-12-23 08:53] VITALS: BMI 37.5
[2018-12-23 09:05] VITALS: BP 91/65; PULSE 88; RESP 18; TEMP 97.7; O2SAT 100
[2018-12-23 09:57] LABS: INFLUENZA A B NEGATIVE FOR FLU A/B (NEGATIVE)
--- NOTE | 2018-12-23 10:12 | RAD ---
Date of service: 12/23/2018 HISTORY: cough COMPARISON: Comparison chest dated 12/23/2018. TECHNIQUE: Chest PA and lateral views FINDINGS: LUNGS: No active pulmonary disease. PLEURA: No significant pleural effusion identified. No pneumothorax apparent. CARDIOVASCULAR: No aortic atherosclerotic calcification present. Normal cardiac size. No pulmonary vascular congestion. OSSEOUS STRUCTURES: No significant abnormalities. VISUALIZED UPPER ABDOMEN: Normal. OTHER FINDINGS: None. IMPRESSION: No active disease.
--- NOTE | 2018-12-23 10:35 | C.PDOC ---
History Of Present Illness 33 y/o female,with no significant PMhx, presents to the ER complaining of cough, chest tightness and tactile fever which has been present for the past 3 days. 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 Patient denies having chest pain, sob, bodyaches, headache,dizziness, nausea, vomiting, and abdominal pain. Chief Complaint (Nursing): Flu-like Symptoms History Per: Patient History/Exam Limitations: no limitations Onset/Duration Of Symptoms: Days Current Symptoms Are (Timing): Still Present Severity: Moderate Past Medical History Reviewed: Historical Data, Nursing Documentation, Vital Signs Vital Signs: Last Vital Signs Temp 97.7 F 12/23/18 08:58 Pulse 88 12/23/18 08:58 Resp 18 12/23/18 08:58 BP 91/65 L 12/23/18 08:58 Pulse Ox 100 12/23/18 08:58 Primary Care Provider: Non [facility] Provider, - Medical History PMH: Bronchitis, Pneumonia Surgical History: Appendectomy, (x 2) Family History: States: No Known Family Hx - Social History Hx Tobacco Use: Yes Hx Alcohol Use: Yes (social) Hx Substance Use: No - Immunization History Hx Tetanus Toxoid Vaccination: Yes Hx Influenza Vaccination: Yes Hx Pneumococcal Vaccination: No Review Of Systems Except As Marked, All Systems Reviewed And Found Negative. Constitutional: Positive for: Fever (tactile fever). Negative for: Chills ENT: Negative for: Nose Congestion Cardiovascular: Positive for: Other (chest tightness) Respiratory: Positive for: Cough. Negative for: Shortness of Breath Gastrointestinal: Negative for: Nausea, Vomiting, Abdominal Pain Neurological: Negative for: Headache, Dizziness Physical Exam - Physical Exam Appears: Well, Non-toxic, No Acute Distress Skin: Normal Color, Warm, Dry Head: Atraumatic, Normacephalic Eye(s): bilateral: Normal Inspection Ear(s): Bilateral: Normal Nose: Normal Oral Mucosa: Moist Throat: Normal, No Erythema, No Exudate, Other (no injection) Neck: Supple Chest: Symmetrical Cardiovascular: Rhythm Regular Respiratory: No Rales, Rhonchi (mild diffuse rhonchi), No Wheezing Neurological/Psych: Oriented x3, Normal Speech ED Course And Treatment O2 Sat by Pulse Oximetry: 100 (RA) Pulse Ox Interpretation: Normal - Other Rad CXR X-Ray: Viewed By Me, Read By Radiologist Interpretation: Date of service: 12/23/2018. HISTORY: cough. COMPARISON: Comparison chest dated 12/23/2018. TECHNIQUE: Chest PA and lateral views. FINDINGS: LUNGS: No active pulmonary disease. PLEURA: No significant pleural effusion identified. No pneumothorax apparent. CARDIOVASCULAR: No aortic atherosclerotic calcification present. Normal cardiac size. No pulmonary vascular congestion. OSSEOUS STRUCTURES: No significant abnormalities. VISUALIZED UPPER ABDOMEN: Normal. OTHER FINDINGS: None. IMPRESSION: No active disease. Medical Decision Making Medical Decision Making: Plan: --CXR --Flu Swab --Rapid Strep Test --Throat Culture Updates: Pt re-eval. Denies any complaint at this time. Agrees with d/c plan and ambulating around room/getting dressed without issue. Pt understands and agrees to immediately return to the ER if fevers, neck pain, HAs, n/v, or any other concerning, worsening, new or continued sxs. Otherwise, states will f/u with pcp in 1-2 days. States will call [facility] for appts. Patient states feeling better and would like to go home. Patient is very well appearing and non-toxic. Vital signs are stable. I discussed the results of the work-up, diagnosis and treatment. Written discharge instructions were provided to patient. Additional verbal instructions were given and discussed with patient. We discussed the importance of follow up with PCP/consultants. I also reiterated reasons to immediately return to the ER including: worsening in current symptoms and/or new, continued, or concerning symptoms. Pt understood a nd agreed. Disposition Counseled Patient/Family Regarding: Studies Performed, Diagnosis, Need For Followup - Disposition Disposition: HOME/ ROUTINE Disposition Time: 10:33 Condition: GOOD Additional Instructions: STEPHEN QUINN, thank you for letting us take care of you today. Your provider was Brenda Drew MD and you were treated for COUGHING/FEVER. The emergency medical care you received today was directed at your acute symptoms. It may take several days for your symptoms to resolve. Return to the Emergency Department if your symptoms worsen, do not improve, or if you have any other problems. Please contact your doctor or call one of the physicians/clinics you have been referred to that are listed on the Patient Visit Information form that is included in your discharge packet. Bring any paperwork you were given at discharge with you along with any medications you are taking to your follow up visit. Our treatment cannot replace ongoing medical care by a primary care provider outside of the emergency department. Thank you for allowing the [facility] team to be part of your care today. If you had a blood, urine, or wound culture: It will take several days for the results, if any change in treatment is needed we will contact you. Instructions: Viral Upper Respiratory Infection, Adult (DC) Forms: General Discharge Instructions, [email or web address] (Vietnamese), Work Excuse - POA Present On Arrival: None - Clinical Impression Clinical Impression: Viral upper respiratory illness - Scribe Statement The provider has reviewed the documentation as recorded by the Shalomibe Breanna Obando Provider Attestation: All medical record entries made by the Shalomibe were at my direction and personally dictated by me. I have reviewed the chart and agree that the record accurately reflects my personal performance of the history, physical exam, medical decision making, and the department course for this patient. I have also personally directed, reviewed, and agree with the discharge instructions and disposition.
== END 2018-12-23 10:43 | disposition home or self-care (01) ==
LOC: C.ER 08:53
DX: B34.9 Viral infection, unspecified (principal)